=== PATIENT | female | born 1970 | race Caucasian/White ===

== ENCOUNTER 2016-10-23 19:33 | Emergency (ER) | payer BC, MEDICAID ==
[~2016-10-23] VITALS: Ht 157.5 cm; Wt 91.0 kg
[2016-10-23 19:37] VITALS: Ht 157.5 cm; Wt 91.0 kg
[2016-10-23] MEDS ORDERED: LOSA50TA6 PO (22:39)
[2016-10-23] MEDS ORDERED: BISO5TAB21 PO (22:39)
[2016-10-23] MEDS ORDERED: ATOR10TA65 PO (22:40)
[2016-10-23] MEDS ORDERED: CYAN50TA PO (22:41)
[2016-10-23] MEDS ORDERED: MULTI PO (22:41)
[2016-10-23] MEDS ORDERED: IBUP200C PO (22:42)
[2016-10-23 22:49] LABS: ADD SCAN DIFF NO
[2016-10-23 22:50] LABS: BASOPHILS % 0.4 % (0.0-2.0); EOSINOPHILS # 0.2 10^3/ul (0.0-0.5); EOSINOPHILS % 1.3 % (0.0-7.0); HEMATOCRIT 40.8 % (37.0-47.0); HEMOGLOBIN 13.8 g/dl (12.0-16.0); LYMPHOCYTES % 35.9 % (15.0-51.0); MEAN CORPUSCULAR HEMOGLOBIN 29.9 pg (29.0-33.0); MEAN CORPUSCULAR HGB CONC 33.8 g/dl (32.0-37.0); MEAN CORPUSCULAR VOLUME 88.5 fl (82.0-101.0); MEAN PLATELET VOLUME 10.2 fl (7.4-10.4); MONOCYTE # 0.8 10^3/ul (0.3-0.9); MONOCYTES % 6.8 % (0.0-11.0); NEUTROPHIL # 6.2 10^3/ul (1.6-7.5); NEUTROPHILS % 54.8 % (39.0-77.0); PLATELET COUNT 295 10^3/UL (140-415); RED BLOOD COUNT 4.61 10^6/ul (4.20-5.40); RED CELL DISTRIBUTION WIDTH 12.9 % (11.5-14.5); WHITE BLOOD COUNT 11.3 10^3/ul (4.8-10.8)
[2016-10-23 23:03] LABS: INR 0.91; PROTIME 12.3 Sec (12.2-14.2)
[2016-10-23 23:04] LABS: PARTIAL THROMBOPLASTIN TIME 28.4 Sec (25.0-35.0)
[2016-10-23 23:11] LABS: ALANINE AMINOTRANSFERASE 74 IU/L (13-69); ALBUMIN 4.7 g/dl (3.3-4.9); ALBUMIN/GLOBULIN RATIO 1.38; ALKALINE PHOSPHATASE 74 IU/L (42-121); ANION GAP 12 (8-16); ASPARTATE AMINO TRANSFERASE 37 IU/L (15-46); BILIRUBIN,INDIRECT 0.2 mg/dl (0-1.1); BILIRUBIN,TOTAL 0.2 mg/dl (0.2-1.3); BLOOD UREA NITROGEN 15 mg/dl (7-20); CALCIUM 9.9 mg/dl (8.4-10.2); CARBON DIOXIDE 24 mmol/L (21-31); CHLORIDE 106 mmol/L (97-110); CREATININE 0.75 mg/dl (0.44-1.00); GLUCOSE 102 mg/dl (70-220); POTASSIUM 4.2 mmol/L (3.5-5.1); SODIUM 138 mmol/L (135-144); TOTAL PROTEIN 8.1 g/dl (6.1-8.1)
[2016-10-23 23:19] LABS: B-TYPE NATRIURETIC PEPTIDE 31 PG/ML (0-125)
[2016-10-23 23:26] LABS: TROPONIN-I < 0.012 ng/ml (0.00-0.12)
--- NOTE | 2016-10-24 00:30 | RADRPT ---
PROCEDURE: XR Chest. CLINICAL INDICATION: Chest Pain. TECHNIQUE: Single frontal view of the chest was obtained. COMPARISON: 02/18/2014 FINDINGS: The cardiomediastinal silhouette is normal size. Pulmonary vasculature is within normal limits. Th ere are probable scattered small calcified granulomas.. No signs of pleural fluid or pneumothorax are seen. The osseous structures and soft tissues are unre markable. IMPRESSION: No evidence for active cardiopulmonary disease. Probable small calcified granulomas.. RPTAT: HBST .Pelon Sellers MD, MD Date Time Electronically viewed and signed by .Pelon Sellers MD, MD on 10/24/2016 00:30 .T/
--- NOTE | 2016-10-24 00:34 | ERD ---
ER Documentation Chief Complaint Date/Time DATE: 10/24/16 TIME: 00:34 Chief Complaint chest pain radaiting to back since last night HPI Is a very pleasant 45 year female reproducible chest wall pain that radiates to her back since yesterday. Pain is mild to moderate in intensity. No fevers or chills. No shortness of breath. No palpitations. No other current complaints. ROS All systems reviewed and are negative except as per history of present illness. Medications Home Meds Reported Medications Ibuprofen* (Ibuprofen*) 200 Mg Capsule, 400 MG PO TID Y for PAIN, CAP 10/23/16 Cyanocobalamin* (Vitamin B-12*) 50 Mcg Tablet, 50 MCG PO DAILY, TAB 10/23/16 Multivitamins* (Theragran*) 1 Tab Tab, 1 TAB PO DAILY, TAB 10/23/16 Atorvastatin Calcium (Atorvastatin Calcium) 10 Mg Tablet, 10 MG PO QAM, #30 TAB 10/23/16 Bisoprolol Fumarate* (Bisoprolol Fumarate*) 5 Mg Tablet, 2.5 MG PO QHS, TAB 10/23/16 Losartan Potassium* (Losartan Potassium*) 50 Mg Tablet, 50 MG PO QAM, TAB 10/23/16 Allergies Allergies: Coded Allergies: Penicillins (Verified Allergy, Severe, ANAPHALAXSIS, 10/23/16) PMhx/Soc Medical and Surgical Hx: pt denies Surgical Hx History of Surgery: No Anesthesia Reaction: No Hx Neurological Disorder: No Hx Respiratory Disorders: No Hx Cardiac Disorders: Yes (HTN) Hx Psychiatric Problems: No Hx Miscellaneous Medical Probl: No Hx Alcohol Use: No Hx Substance Use: No Hx Tobacco Use: No Smoking Status: Never smoker Physical Exam Vitals Vital Signs Date Time Temp Pulse Resp B/P Pulse Ox O2 Delivery O2 Flow Rate FiO2 10/23/16 22:25 97.8 76 20 126/74 99 Room Air 10/23/16 19:37 97.8 89 20 166/92 98 Physical Exam Const: [] Head: Atraumatic Eyes: Normal Conjunctiva ENT: Normal External Ears, Nose and Mouth. Neck: Full range of motion..~ No meningismus. Resp: Clear to auscultation bilaterally Cardio: Regular rate and rhythm, no murmurs Abd: Soft, non tender, non distended. Normal bowel sounds Skin: No petechiae or rashes Back: No midline or flank tenderness Ext: No cyanosis, or edema Neur: Awake and alert Psych: Normal Mood and Affect Result Diagram: 10/23/16223410/23/162234 Results 24 hrs Laboratory Tests Test 10/23/16 22:35 White Blood Count 11.310^3/ul Red Blood Count 4.6110^6/ul Hemoglobin 13.8g/dl Hematocrit 40.8% Mean Corpuscular Volume 88.5fl Mean Corpuscular Hemoglobin 29.9pg Mean Corpuscular Hemoglobin Concent 33.8g/dl Red Cell Distribution Width 12.9% Platelet Count 21885^3/UL Mean Platelet Volume 10.2fl Neutrophils % 54.8% Lymphocytes % 35.9% Monocytes % 6.8% Eosinophils % 1.3% Basophils % 0.4% Nucleated Red Blood Cells % 0.0/100WBC Neutrophils # 6.210^3/ul Lymphocytes # 4.010^3/ul Monocytes # 0.810^3/ul Eosinophils # 0.210^3/ul Basophils # 0.010^3/ul Nucleated Red Blood Cells # 0.010^3/ul Prothrombin Time 12.3Sec Prothrombin Time Ratio 1.0 INR International Normalized Ratio 0.91 Activated Partial Thromboplast Time 28.4Sec Sodium Level 138mmol/L Potassium Level 4.2mmol/L Chloride Level 106mmol/L Carbon Dioxide Level 24mmol/L Anion Gap 12 Blood Urea Nitrogen 15mg/dl Creatinine 0.75mg/dl Glucose Level 102mg/dl Calcium Level 9.9mg/dl Total Bilirubin 0.2mg/dl Direct Bilirubin 0.00mg/dl Indirect Bilirubin 0.2mg/dl Aspartate Amino Transf (AST/SGOT) 37IU/L Alanine Aminotransferase (ALT/SGPT) 74IU/L Alkaline Phosphatase 74IU/L Troponin I < 0.012ng/ml B-Type Natriuretic Peptide 31PG/ML Total Protein 8.1g/dl Albumin 4.7g/dl Globulin 3.40g/dl Albumin/Globulin Ratio 1.38 Procedures/MDM EKG: Rate/Rhythm: [Normal Sinus Rhythm] QRS, ST, T-waves: [No changes consistent w/ acute ischemia] Impression: [No evidence of ischemia or arrhythmia] Chest X-ray 1V Interpreted by me: Soft Tissue: No acute abnormalities Bones: No acute abnormalities Mediastinum/Cardiac Silhouette/Lungs: [No acute abnormalities] Patient's thoracic symptoms have stabilized while in the department and are stable for outpatient follow up. Exam and work up not consistent w/ ischemia, arrhythmia, PE or dissection. Departure Diagnosis: Primary Impression: Chest pain Chest pain type: unspecified Qualified Code: R07.9 - Chest pain, unspecified type Condition: Stable ARMIDA WAYNE October 24, 2016 00:34
[2016-10-24] MEDS ORDERED: NAPR-260 PO (00:36)
[2016-10-24 00:44] VITALS: BP 114/72; PULSE 68; RESP 20; TEMP 97.8
== END 2016-10-24 00:44 | disposition home or self-care (01) ==
LOC: E/R 19:33
DX: R07.89 Other chest pain (principal); I10 Essential (primary) hypertension
CPT/HCPCS: 36415; 71010; 80053; 83880; 84484; 85025; 85610; 85730; 93005; Z7502